=== PATIENT | male | born 1995 | race African-American/Black ===

== ENCOUNTER 2017-02-16 11:31 | Emergency (ER) | payer SELFPAY ==
[~2017-02-16] VITALS: Ht 167.6 cm; Wt 59.0 kg
[2017-02-16 11:50] VITALS: BP 133/58
--- NOTE | 2017-02-16 12:17 | PHYS DOC ---
Past Medical History Past Medical History: No Pertinent History Past Surgical History: No Surgical History Alcohol Use: None Drug Use: None Adult General Chief Complaint Chief Complaint: UPPER EXTREMITY PAIN [facility] HPI Patient is a 21 year old male presents to the emergency department stating he is having left arm pain just above the elbow. He states that his been having increased pain whenever he lifts anything with the left arm. Patient states he has a bruise noted. He denies any injury or trauma. He states that he's had this prescription approximately 2-3 days. He denies any numbness or tingling down to his hand. He has not taken anything for pain and discomfort. Review of Systems Review of Systems Constitutional: Denies fever or chills [] Eyes: Denies change in visual acuity, redness, or eye pain [] HENT: Denies nasal congestion or sore throat [] Respiratory: Denies cough or shortness of breath [] Cardiovascular: No additional information not addressed in HPI [] GI: Denies abdominal pain, nausea, vomiting, bloody stools or diarrhea [] : Denies dysuria or hematuria [] Musculoskeletal: Denies back pain or joint pain. Complaint of left upper arm pain and discomfort with bruising noted just above the elbow area Integument: Denies rash or skin lesions [] Neurologic: Denies headache, focal weakness or sensory changes [] Endocrine: Denies polyuria or polydipsia [] Allergies Allergies Allergies Coded Allergies Type Severity Reaction Last Updated Verified No Known Drug Allergies 02/16/17 No Physical Exam Physical Exam Constitutional: Well developed, well nourished, no acute distress, non-toxic appearance. [] HENT: Normocephalic, atraumatic, bilateral external ears normal, oropharynx moist, no oral exudates, nose normal. [] Eyes: PERRLA, EOMI, conjunctiva normal, no discharge. [] Neck: Normal range of motion, no tenderness, supple, no stridor. [] Cardiovascular:Heart rate regular rhythm Lungs & Thorax: No respiratory distress noted.] Skin: Warm, dry, no erythema, no rash. [] Back: No tenderness Extremities: No tenderness, no cyanosis, no clubbing, ROM intact, no edema. Patient with bruising and tenderness noted just above the elbow area on the left arm. Bruising appears to be approximately size of a quarter. Patient's with equal director talent noted bilaterally. Neurologic: Alert and oriented X 3, normal motor function, normal sensory function, no focal deficits noted. [] Psychologic: Affect normal, judgement normal, mood normal. [] Current Patient Data Vital Signs Vital Signs Date Time Temp Pulse Resp B/P (MAP) Pulse Ox O2 Delivery O2 Flow Rate FiO2 02/16/17 11:50 98.1 70 16 99 Room Air 98.1 EKG EKG [] Radiology/Procedures Radiology/Procedures [] Course & Med Decision Making Course & Med Decision Making Pertinent Labs and Imaging studies reviewed. (See chart for details) Recommended ice packs on 20 minutes off 20 minutes several times a day. Also recommended no lifting for the next 2-3 days with a left arm. Patient was also encouraged to use ice packs on 20 minutes off 20 minutes several times a day. He 'll be provided with orthopedic name and number to follow up with. Signs and symptoms to return back to emergency department as been provided. Patient agrees with discharge instructions treatment regimens and follow-up recommendations. [] Dragon Disclaimer Dragon Disclaimer This electronic medical record was generated, in whole or in part, using a voice recognition dictation system. Departure Departure Impression: Primary Impression: Left arm pain Disposition: 01 HOME, SELF-CARE Condition: STABLE Referrals: MINOR ULRICH MD (PCP) ELSA YUN MD Patient Instructions: Muscle Strain, [id number] Additional Instructions: Ibuprofen 800 mg every 8 hours. Take this medication with food to prevent stomach upset. If he did develop an upset stomach stopped taking. Ice packs on 20 minutes off 20 minutes several times today. No lifting with the left arm for the next 2-3 days. Follow-up with orthopedic in the next week. Return back to emergency prior signs symptoms of become worse. BLAKE YU HAND STEMMER Feb 16, 2017 12:17
== END 2017-02-16 12:18 | disposition home or self-care (01) ==
LOC: ER 11:31
DX: S50.02XA Contusion of left elbow, initial encounter (principal); M79.602 Pain in left arm; X58.XXXA Exposure to other specified factors, initial encounter; Y93.89 Activity, other specified; Y99.8 Other external cause status; Y92.89 Other specified places as the place of occurrence of the external cause
CPT/HCPCS: 99281